=== PATIENT | male | born 1995 | race Caucasian/White ===

== ENCOUNTER 2019-09-03 15:47 | Emergency (ER) | payer BC, OTHER ==
[2019-09-03] MEDS ORDERED: TETANUS & DIPHTHERIA TOX,ADULT 0.5 ML VIAL ONE (16:34)
[2019-09-03] MEDS ORDERED: NA CHLORIDE 0.9% 1,000 ML ONE (17:00)
[2019-09-03] MEDS ORDERED: PIPER/TAZO/NS 3.375gm 3.375 GM/100 ML BAG ONE (17:00)
[2019-09-03 17:17] LABS: Absolute Lymphocytes (CBC) 1.6 K/uL (0.7-4.9); Basophils % 0.3 % (0-1.3); Lymphocytes % 20.5 % (15.3-44.8); MPV 8.2 fL (7.6-11.3); RBC Red Blood Cell Count 4.45 M/uL (4.33-5.43)
[2019-09-03] MEDS ORDERED: LIDOCAINE 1% MPF 30 ML VIAL ONE (17:21)
[2019-09-03 17:28] LABS: Albumin 4.1 g/dL (3.4-5.0); Bilirubin Total 0.3 mg/dL (0.2-1.0); Potassium 3.8 mmol/L (3.5-5.1); Protein, Total 7.2 g/dL (6.4-8.2)
--- NOTE | 2019-09-03 17:59 | ER ---
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 ll1 Large laceration, bleeding controlled. Coronavirus screen: Proceed with normal triage. Patient denies a cough. Patient denies shortness of breath or difficulty breathing. Patient denies measured and/or subjective temperature greater than 100.4F prior to today's visit. Patient denies travel on a cruise ship or to a country the [facility] currently lists as an affected area. Patient denies contact with known and/or suspected case of COVID-19. Ebola Screen: Patient denies travel to an Ebola-affected area in the 21 days before illness onset. Complicating Factors: tree limbs. Initial Sepsis Screen: Does the patient meet any 2 criteria? HR > 90 bpm. Risk Assessment: Do you want to hurt yourself or someone else? Patient reports no desire to harm self or others. Onset of symptoms was September 03, 2019. 15:55 Method Of Arrival: Wheelchair ll1 15:55 Acuity: LATASHA 3 ll1 16:00 Initial Sepsis Screen: Does the patient have a suspected source of infection? Yes: Skin vc breakdown/wound. Historical: - Allergies: 15:57 No Known Allergies; ll1 - PSHx: 15:58 Tonsillectomy; ll1 - Immunization history:: Last tetanus immunization: < 5 years ago. - Social history:: Smoking status: Patient denies any tobacco usage or history of. Patient/guardian denies using alcohol, street drugs, tobacco products. Screenin:00 Abuse screen: Denies threats or abuse. Nutritional screening: No deficits noted. vc Tuberculosis screening: No symptoms or risk factors identified. Fall Risk None identified. Assessment: 16:15 General: Appears in no apparent distress. uncomfortable, Behavior is calm, cooperative, vc appropriate for age. Pain: Complains of pain in right quadriceps Pain does not radiate. Pain currently is 5 out of 10 on a pain scale. Neuro: Level of Consciousness is awake, alert, obeys commands, Oriented to person, place, time, situation. Cardiovascular: Patient's skin is warm and dry. Respiratory: Airway is patent Respiratory effort is even, unlabored, Respiratory pattern is regular, symmetrical. GI: No signs and/or symptoms were reported involving the gastrointestinal system. : No signs and/or symptoms were reported regarding the genitourinary system. Musculoskeletal: Capillary refill < 3 seconds. Injury Description: Laceration is contaminated, not bleeding. Vital Signs: 15:55 BP 145 / 90; Pulse 102; Resp 17; Temp 98.7; Pulse Ox 98% ; Pain 7/10; ll1 18:00 BP 138 / 86; Pulse 86; Resp 18; Pulse Ox 99% on R/A; vc ED Course: 15:49 Patient arrived in ED. as 15:57 Triage completed. ll1 15:58 Arm band placed on Patient placed in an exam room, on a stretcher. ll1 16:00 Bed in low position. Call light in reach. Side rails up X 1. Pulse ox on. NIBP on. vc 16:01 Jason Padilla, TOOL DESIGN CHECKER is PHCP. pm1 16:01 Jose Valdovinos MD is Attending Physician. pm1 16:14 Jenifer Suggs, VIKAS is Primary Nurse. vc 16:45 Assist provider with laceration repair on right quadriceps that was between 20.1 to vc 30.0 cm using rea. Set up tray. Performed by Angelo Gallardo MD Dressed with Kerlix, staci wrap Patient tolerated well. 16:45 IV discontinued, intact, bleeding controlled, No redness/swelling at site. Pressure vc dressing applied. 17:57 Angelo Gallardo MD is Referral Physician. 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 Exp: vc 05/03/2021. Lot #: [id number]. } Route: IM; Site: right deltoid; 17:09 Follow up: Response: No adverse reaction vc 17:08 Drug: Zosyn 3.375 grams Route: IVPB; Infused Over: 60 mins; Site: right antecubital; vc 17:08 Drug: NS 0.9% 1000 ml Route: IV; Rate: 125 ml/hr; Site: right antecubital; vc Outcome: 17:58 Discharge ordered by . pm1 18:20 Discharged to home via wheelchair, with significant other. vc 18:20 Condition: good 18:20 Discharge instructions given to patient, significant other, Instructed on discharge instructions, follow up and referral plans. medication usage, Demonstrated understanding of instructions, follow-up care, medications, Prescriptions given X 2. 18:24 Patient left the ED. vc Signatures: Rocio Gallardo Patrick, SYDNI TOOL DESIGN CHECKER pm1 Jenifer Suggs RN RN vc John Ballesteros RN RN ll1
--- NOTE | 2019-09-03 17:59 | EDPHYS ---
Physician Documentation [facility] Name: Serafin Lauren Age: 23 yrs Sex: Male : 1995 Arrival Date: 09/03/2019 Time: 15:49 Bed 23 Private MD: ED Physician Jose Valdovinos HPI: 09/02 16:12 This 23 yrs old Male presents to ER via Wheelchair with complaints of pm1 Laceration - thigh. 16:12 The patient presents with a laceration. The complaints affect the lateral aspect of pm1 right thigh. Context: The problem was sustained outdoors, the patient can fully bear weight, the patient is able to ambulate, Problem is a result from a previous injury: No. Onset: The symptoms/episode began/occurred just prior to arrival. Modifying factors: The symptoms are alleviated by pressure to laceration. Associated signs and symptoms: Pertinent negatives numbness, tingling. Treatment prior to arrival includes: applying pressure to the affected area. The patient has not experienced similar symptoms in the past. Patient was walking with his chain saw and the accidentally moved his right leg towards the blade resulting in laceration to lateral aspect of right thigh. Historical: - Allergies: 15:57 No Known Allergies; ll1 - PSHx: 15:58 Tonsillectomy; ll1 - Immunization history:: Last tetanus immunization: < 5 years ago. - Social history:: Smoking status: Patient denies any tobacco usage or history of. Patient/guardian denies using alcohol, street drugs, tobacco products. ROS: 16:12 Constitutional: Negative for fever, chills, and weight loss, Cardiovascular: Negative pm1 for chest pain, palpitations, and edema, Respiratory: Negative for shortness of breath, cough, wheezing, and pleuritic chest pain, Abdomen/GI: Negative for abdominal pain, nausea, vomiting, diarrhea, and constipation. 16:12 Neuro: Negative for headache, weakness, numbness, tingling, and seizure. 16:12 MS/extremity: Positive for laceration, pain, of the lateral aspect of right thigh, Negative for decreased range of motion, deformity, paresthesias. 16:12 Skin: Positive for laceration(s), of the lateral aspect of right thigh. 16:12 All other systems are negative. Exam: 16:12 Constitutional: This is a well developed, well nourished patient who is awake, alert, pm1 and in no acute distress. Head/Face: Normocephalic, atraumatic. 16:12 Cardiovascular: Rate: normal, Rhythm: regular, Pulses: no pulse deficits are appreciated, right foot. 16:12 Respiratory: Exam negative for acute changes, respiratory distress, shortness of breath. 16:12 Skin: Appearance: normal except for affected area, injury, laceration(s), the wound is approximately 15 cm(s), with a depth of 2 cm(s), of the lateral aspect of right thigh. 16:12 Neuro: Exam negative for acute changes, Orientation: is normal, Motor: is normal, moves all fours, Sensation: is normal, no obvious gross deficits. Vital Signs: 15:55 BP 145 / 90; Pulse 102; Resp 17; Temp 98.7; Pulse Ox 98% ; Pain 7/10; ll1 18:00 BP 138 / 86; Pulse 86; Resp 18; Pulse Ox 99% on R/A; vc MDM: 16:01 Patient medically screened. pm1 16:12 Physician consultation: Jose Valdovinos MD recommends consultation with Dr. Gallardo. pm1 Impression is that patient will likely need OR washout of wound. 16:40 Physician consultation: Angelo Gallardo MD was called at 16:08, was contacted at 16:40, pm1 regarding consult, patient's condition, and will see patient in ED. 16:40 Data reviewed: vital signs. Data interpreted: Pulse oximetry: on room air is 99 %. pm1 Interpretation: normal. 16:56 ED course: 1300 was the last time the patient ate food. pm1 17:55 Physician consultation: Angelo Gallardo MD completed laceration repair with pen maria de jesus pm1 drain. Requests discharge home with bactrim and pain medications. Follow up in the office on Monday. 17:55 Counseling: I had a detailed discussion with the patient and/or guardian regarding: the pm1 historical points, exam findings, and any diagnostic results supporting the discharge/admit diagnosis, lab results, the need for outpatient follow up, a general surgeon, to return to the emergency department if symptoms worsen or persist or if there are any questions or concerns that arise at home. 09/03 02:06 ED course: EXIT BOOTH AGENT aware reviewed. pm1 09/02 16:50 Order name: CBC with Diff; Complete Time: 17:33 pm1 09/02 16:50 Order name: CMP; Complete Time: 17:33 pm1 09/02 16:06 Order name: IV Saline Lock; Complete Time: 16:24 pm1 09/02 16:50 Order name: NPO; Complete Time: 16:51 pm1 Administered Medications: 09/02 16:32 Drug: Tetanus-Diphtheria Toxoid Adult 0.5 ml {Fruit Or Nut Grower: [employer]. Exp: vc 05/03/2021. Lot #: [id number]. } Route: IM; Site: right deltoid; 17:09 Follow up: Response: No adverse reaction vc 17:08 Drug: Zosyn 3.375 grams Route: IVPB; Infused Over: 60 mins; Site: right antecubital; vc 17:08 Drug: NS 0.9% 1000 ml Route: IV; Rate: 125 ml/hr; Site: right antecubital; Disposition: 09/03 05:36 Co-signature as Attending Physician, Jose Valdovinos MD I agree with the assessment and grant hospital plan of care. Disposition: 09/03/19 17:58 Discharged to Home. Impression: Laceration without foreign body, right thigh. - Condition is Stable. - Discharge Instructions: Laceration Care, Adult. - Prescriptions for Tylenol- Codeine #3 300-30 mg Oral Tablet - take 2 tablets by ORAL route every 6 hours As needed; 20 tablet. Bactrim DS 800- 160 mg Oral Tablet - take 1 tablet by ORAL route every 12 hours for 10 days; 20 tablet. - Medication Reconciliation Form, Thank You Letter, Antibiotic Education, Prescription Opioid Use form. - Follow up: Emergency Department; When: As needed; Reason: Worsening of condition. Follow up: Angelo Gallardo MD; When: 09/09/2019; Reason: Wound Recheck, Recheck today's complaints, Continuance of care, Re-evaluation by your physician. - Problem is new. - Symptoms have improved. Signatures: Dispatcher [employer] Jose Leal MD MD cha Marinas, Patrick, SILICA MIXER OPERATOR SILICA MIXER OPERATOR pm1 Jenifer Suggs RN RN John Matute RN RN ll1 Corrections: (The following items were deleted from the chart) 09/02 16:32 16:07 Humerus Right+RAD.RAD.BRZ ordered. EDMS EDMS 17:58 16:23 Femur Right+RAD.RAD.BRZ ordered. EDKY EDMS 18:24 17:58 09/03/2019 17:58 Discharged to Home. Impression: Laceration without foreign body, vc right thigh. Condition is Stable. Forms are Medication Reconciliation Form, Thank You Letter, Antibiotic Education, Prescription Opioid Use. Follow up: Emergency Department; When: As needed; Reason: Worsening of condition. Follow up: Angelo Gallardo; When: 09/09/2019; Reason: Wound Recheck, Recheck today's complaints, Continuance of care, Re-evaluation by your physician. Problem is new. Symptoms have improved. pm1
[2019-09-03 18:29] VITALS: BP 145/90; TEMP 98.7; O2SAT 98
--- NOTE | 2019-09-04 01:44 | HP ---
Date of Admission: 09/03/2019 Diagnosis: Trauma to the right thigh, laceration of the right thigh with a chainsaw. 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 He stated area was clean, he just put a pressure over that area and come to the ER. In ER, he was seen by the ER physician, they asked me for a consult for repair of complex laceration. He denies any other trauma. He denies any dysuria, hematuria, hematochezia, or melena. He denies an y short of breath, denies any chest pain. Review of Systems: Ten points are otherwise unremarkable. Allergies: NONE. Past Surgical History: Tonsillectomy. Family History: Noncontributory. Immunization: Last tetanus shot was less than 5 years ago. Social History: He denies any smoking, denies any drinking. Family History: Noncontributory. Physical Examination: General: Patient is awake and alert. HEENT: Pupils are equal and reactive, anicteric. Neck: Supple. Chest: Clear. Heart: S1, S2. Abdomen: Soft and depressible. Nontender. Nondistended. Extremities: Over the right anterior thigh patient has about 8 cm complex laceration with jagged edg es. It goes down to subcutaneous tissue, fascia and muscle. There is no active bleeding at this pam e, but there is obvious cut of the lateralis muscle. Patient has good dorsalis pedis, no sensory def icits on the distal part of the extremity. Good dorsalis pedis, posterior tibialis and femoral pulse s. Neurologic: Cranial nerves 2-12 grossly within normal limits. Assessment: A 23-year-old patient with a complex laceration of the right leg area. Patient will hav e this repair in the ER under local anesthetic. Please see procedure note. Patient will be discharg ed home with p.o. antibiotics, p.o. pain medications. [place]yenne drain is there and follow in my office in this next Monday. The patient's girlfriend/ works in our institution, she feels very comfort able doing dressing changes and we explained to her since she was at bedside and see procedure note. HM/MODL Voice ID: [id number]
--- NOTE | 2019-09-04 02:50 | OP ---
Date of Procedure: 09/03/2019 Surgeon: Angelo Gallardo MD Preoperative Diagnosis: Complex laceration and trauma to the right anterior thigh cutting through th e skin, subcutaneous tissue, fascia, and muscle. Postoperative Diagnosis: Complex laceration and trauma to the right anterior thigh cutting through t he skin, subcutaneous tissue, fascia, and muscle. Procedure Performed: Repair of a complex laceration about 8 x 3 cm over the right anterior thigh wit h muscle repair, fascia repair, and skin repair. Anesthesia: Local anesthetic. Complications: None. History: This is the case of a 23-year-old patient, with laceration of the right thigh self infected by accident. Patient was fully explained the benefits and risks of exploration, cleaning, repair, a nd debridement of complex laceration on the right anterior thigh. The benefits, alternatives, and ri sks were explained, which include, but not limited to infection, bleeding, damage to adjacent structu res, anesthesia complications, nonhealing wound, NC, and even . He also understands he most lik isidra will have a drain in that area. He was explained how to take care of that, his girlfriend too, kelli goodwin is at bedside. Description Of Procedure: A time-out was called. The right thigh was prepped and draped in usual st erile fashion. Lidocaine 1% plain injected for local anesthetic, followed by sharp incision of the s kin, and on the areas of the jagged edges. We explored the area of the muscle and profuse to irrigat e the area with at least 1 L of saline until clean. The muscle fibers and the fascia were loosely ap proximated with the help of 3-0 chromic allowing some drainage to come through. A Carmen was placed near that area and also in the subcutaneous tissue, and then the skin on top was closed with the hel p of 3-0 chromic. After that, we approximated the skin with rea. After debridement of the skin, approximated the edges together once again leaving the wound partially opened with a Carmen drain o n it to allow facilitate drainage. The patient tolerated the procedure well. Area was covered with sterile dressings. Plan: See consult. DAI/ONIL Voice ID: [id number] Report ID: [id number]
== END 2019-09-03 18:24 | disposition home or self-care (01) ==
LOC: ER 15:47
PROC: 0JQL0ZZ Repair Right Upper Leg Subcutaneous Tissue and Fascia, Open Approach (ICD-10-PCS; principal; 2019-09-03)
DX: S71.111A Laceration without foreign body, right thigh, initial encounter (principal); W29.3XXA Contact with powered garden and outdoor hand tools and machinery, initial encounter; Y93.89 Activity, other specified; Y92.89 Other specified places as the place of occurrence of the external cause; Z23 Encounter for immunization
CPT/HCPCS: 85025; 36415; 80053; 90471; 90714; 96374; 99284; 13121; 13122 ×3; J2543; J7030

== ENCOUNTER 2024-03-15 11:47 | Day surgery (SDC) | payer BC, OTHER ==
[2024-03-15 10:12] LABS: Absolute Eosinophils 0.1 K/uL (0-0.5); Absolute Monocytes 0.5 K/uL (0.1-1.3); Absolute Neutrophil 3.3 K/uL (1.8-8.0); Basophils % 0.4 % (0-1.3); Hematocrit 44.5 % (39.6-49.0); Hemoglobin 15.1 g/dL (13.6-17.9); Lymphocytes % 34.1 % (15.3-44.8); MCH 32.7 pg (27.0-35.0); MCV 96.2 fL (80-100); MPV 7.5 fL (7.6-11.3); Monocytes % 8.2 % (3.3-12.3); Neutrophils % 55.3 % (41.7-73.7); Platelets 263 thou/uL (152-406); RBC Red Blood Cell Count 4.63 M/uL (4.33-5.43); Red Cell Distribution Width 12.9 % (12.1-15.2)
[2024-03-15 10:26] LABS: Anion Gap 7.2 mEq/L (5.0-15.0); Potassium 4.2 mEq/L (3.5-5.1)
[2024-03-15] MEDS: Ringers Lactate 1,000 ML IV ONE (12:25)
[2024-03-15] MEDS ORDERED: propofoL 200 MG/20 ML VIAL IV ONE (13:20)
[2024-03-15] MEDS ORDERED: LIDOCAINE 1% MPF 5 ML VIAL ONE (13:20)
[2024-03-15] MEDS ORDERED: KETOROLAC 30 MG/ML INJ ONE (13:20)
[2024-03-15] MEDS ORDERED: MIDAZOLAM HCL 2 MG/2 ML INJ ONE (13:21)
[2024-03-15] MEDS ORDERED: FENTANYL CITR 100 MCG/2 ML ONE (13:21)
[2024-03-15] MEDS: CEFAZOLIN SODIUM 1 GM/VIAL ONE (13:45)
[2024-03-15] MEDS ORDERED: EPHEDRINE SULF 50 MG/ML VIAL ONE (13:50)
[2024-03-15] MEDS ORDERED: Mastisol Adhesive Liq ONE (13:57)
--- NOTE | 2024-03-15 14:52 | P.BOP ---
Preoperative diagnosis: infected tender post neck mass with abscess, L upper back subQ mass Postoperative diagnosis: same Primary procedure: Excisional biopsy: 1. infected tender post neck subQ mass 6x6cm Secondary procedure: 2. L upper back subQ mass 2x2cm Estimated blood loss: <10cc Specimen: masses, pus Findings: mass with abscess Anesthesia: General Complications: None Transferred to: Recovery Room Condition: Good
[2024-03-15 15:46] VITALS: BP 120/60; O2SAT 99
[2024-03-15 15:47] VITALS: TEMP 97.3
--- NOTE | 2024-03-16 03:05 | OP ---
Surgeon: Angelo Gallardo MD Diagnoses: Infected posterior neck, subcutaneous mass with abscess, and left upper back closer subcu taneous mass. Procedure: Excisional biopsy of posterior neck and upper back subcutaneous masses. Condition: Stable. Disposition: Home. Activity: As tolerated. No heavy lifting. Discharge Instructions: Follow up in my office in 1 week. Call for appointment at [phone]. Keep t he left upper neck area intact but the posterior neck region is going to need wet-to-dry daily. 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 We will see the patie nt on Monday and also on next Monday again. For medications, they were called to the pharmacy. DAI/JACKSON Voice ID: [id number] Report ID: [id number]
--- NOTE | 2024-03-16 03:05 | OP ---
Date of Procedure: 03/15/2024 Surgeon: Angelo Gallardo MD Preoperative Diagnoses: 1.Infected tender posterior neck mass with abscess. 2.Upper back subcutaneous mass. Postoperative Diagnoses: 1.Infected tender posterior neck mass with abscess. 2.Upper back subcutaneous mass. Procedure: 1.Excisional biopsy of infected tender posterior neck subcutaneous mass, 6 x 6 cm with drainage of a n abscess. 2.Excisional biopsy of left upper background investigator subcutaneous mass, 2 x 2 cm. Estimated Blood Loss: Less than 10 cc. Specimen: The 1 on the posterior neck shows a large amount of pus present. It was cultured. Specim en sent to the pathologist. Anesthesia: General plus local. Indications For Procedure: This is a case of a 28-year-old, comes with 2 problems. One of them is a large mass on the posterior neck region that he thought it could be a cyst in the past. He has been on antibiotics several times. It is not improving. So, he came to us for excision. He also have a tender mass in the left upper back. Although this is not red at this moment, he wants us to be munira melo at the same time because he does not want and like this 1 with all infected. The benefits, alter natives, and risks of excision of both areas were explained which include, but not limited to infecti on, bleeding, damage to adjacent structures, anesthesia complication, recurrence, NE, and . He also understands this may not relieve the symptoms. He might need more than one surgical interventio n. He understands for the neck region, he might need dressing changes since we suspect the way looks today that is at least 2 cm bigger with more red and more increased temperature and that area may ramirez ve a large abscess and may need to be wet-to-dry at the end. He understood. The area of concern was marked by me and the patient in the holding room. The patient was brought to the operating room, placed in supine position. Anesthesia was without com plication. The patient was placed in lateral decubitus position with proper protection. We proceede d to go to the left upper back mass. It is the one that is not infected. We are trying to minimize cross contamination, so each area was prepped and draped in the usual sterile fashion. We went to th e left upper side first. A wedge incision of the skin mass was removed all the way down to subcutane ous tissue. The area was irrigated and then the area was closed with 3-0 chromic and Steri-Strips on top. Hemostasis was obtained before closure, also irrigation. The patient tolerated the procedure well. We covered that area with Tegaderm to minimize cross contamination. After that, we went to th e posterior neck region, that is the larger side. When we start to remove it, we noticed a lot of pu rulent discharge coming from that region. It was cultured. Mass was identified and removed complete ly, goes all the way down to fascia. Actually, there is no fat in between the skin and the muscle si nce this inflammatory process is probably just destroying the cuffed fat necrosis. The fascia of the muscle is also involved with the muscle seems to be intact, so we proceeded to irrigate the area, ob tained hemostasis and then covered the area with wet-to-dry dressing. The patient tolerated the proc edure well. The area was covered with sterile dressings. The patient was sent to Recovery in stable condition. DAI/JACKSON Voice ID: [id number] Report ID: [id number]
== END 2024-03-15 15:45 | disposition home or self-care (01) ==
LOC: OR 11:47
PROVIDERS: ATTEND Surgery
PROC: 0JB40ZZ Excision of Right Neck Subcutaneous Tissue and Fascia, Open Approach (ICD-10-PCS; 2024-03-15)
PROC: 0JB70ZZ Excision of Back Subcutaneous Tissue and Fascia, Open Approach (ICD-10-PCS; principal; 2024-03-15 13:45)
PROC: 0JB50ZZ Excision of Left Neck Subcutaneous Tissue and Fascia, Open Approach (ICD-10-PCS; 2024-03-15 13:45)
DX: L72.0 Epidermal cyst (principal); L08.9 Local infection of the skin and subcutaneous tissue, unspecified
CPT/HCPCS: 87070; 85025; 80048; 36415; 87205; 88304; 87075; 11402; 11426; J2704; J2003; J2250; J3010; J7120; J0690; 87076